=== PATIENT | female | born 2000 | race Caucasian/White ===

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

== ENCOUNTER → 2021-06-19 | Outpatient (CLI) | payer OTHER ==
[~2021-06-19] MED LIST: ZOFRAN ODT4 MG PO
== END ==
LOC: COL.RAD 14:27
DX: R59.0 Localized enlarged lymph nodes (principal); R10.31 Right lower quadrant pain; Z90.49 Acquired absence of other specified parts of digestive tract
CPT/HCPCS: Q9967